=== PATIENT | female | born 1980 | race Caucasian/White ===

== ENCOUNTER → 2017-06-10 | Outpatient (CLI) | payer MEDICARE ==
[~2017-06-10] MED LIST: BIAXIN500 MG PO; CLARITIN10 MG PO; HYDROCODONE BIT1 T11 PO; ZITHROMAX Z PA250 MG PO; ZOFRAN4 MG PO
== END | disposition home or self-care (01) ==
LOC: CARD 14:55
DX: Z79.899 Other long term (current) drug therapy (principal)

== ENCOUNTER 2017-07-02 20:26 | Emergency (ER) | payer MEDICARE ==
[~2017-07-02] VITALS: Ht 170.1 cm; Wt 104.3 kg
[2017-07-02 20:31] VITALS: BP 117/81
[2017-07-02] MEDS ORDERED: PAROXETINE HCL40 MG PO (20:32)
[2017-07-02] MEDS ORDERED: DEXTROAMPH SACC20 M1 PO (20:32)
[2017-07-02] MEDS ORDERED: TOPIRAMATE50 M2 PO (20:32)
[2017-07-02] MEDS ORDERED: ATARAX,VISTARIL10 MG PO (20:32)
[2017-07-02] MEDS ORDERED: PRAZOSIN HYDROCH1 MG PO (20:32)
[2017-07-02] MEDS ORDERED: SEROQUEL XR300 MG PO (20:33)
[2017-07-02] MEDS ORDERED: MIXED AMPHETAMI30 M1 PO (20:33)
[2017-07-02] MEDS ORDERED: BUPROPION HCL150 M1 PO (20:33)
[2017-07-02] MEDS ORDERED: CEPHALEXIN500 M1 PO (21:12)
== END 2017-07-02 21:21 | disposition home or self-care (01) ==
LOC: ED 20:26
DX: L98.9 Disorder of the skin and subcutaneous tissue, unspecified (principal); F17.200 Nicotine dependence, unspecified, uncomplicated; Z79.899 Other long term (current) drug therapy; Z88.8 Allergy status to other drugs, medicaments and biological substances

== ENCOUNTER 2017-07-12 17:56 | Emergency (ER) | payer MEDICARE ==
[~2017-07-12] VITALS: Ht 170.1 cm; Wt 104.3 kg
[~2017-07-12 17:56] MED LIST changes: +ATARAX,VISTARIL10 MG PO; +BUPROPION HCL150 M1 PO; +CEPHALEXIN500 M1 PO; +DEXTROAMPH SACC20 M1 PO; +MIXED AMPHETAMI30 M1 PO; +PAROXETINE HCL40 MG PO; +PRAZOSIN HYDROCH1 MG PO; +SEROQUEL XR300 MG PO; +TOPIRAMATE50 M2 PO
[2017-07-12 18:20] VITALS: BP 146/92
[2017-07-12 19:00] LABS: HEMATOCRIT 45.2 % (37.0-47.0); HEMOGLOBIN 15.6 g/dl (12.0-16.0); MEAN CELL VOLUME 92.4 fl (81.0-99.0); MEAN CORPUSCULAR HGB 31.9 pg (27.0-31.0); MEAN CORPUSCULAR HGB CONC 34.5 g/dl (33.0-37.0); MEAN PLATELET VOLUME 10.5 fl (9.6-12.3); PLATELET COUNT AUTOMATED 234 10*3/uL (130-400); RED BLOOD COUNT 4.89 10*6/uL (4.10-5.10); RED CELL DISTRI WIDTH 13.9 % (0-14.5); WHITE BLOOD COUNT 12.8 10*3/uL (4.8-10.8)
[2017-07-12 19:15] LABS: ALBUMIN 4.1 gm/dl (3.1-4.5); ALKALINE PHOSPHATASE 103 U/L (45-117); BUN 21 mg/dl (7-24); CHLORIDE 104 mmol/L (98-107); CREATININE 0.71 mg/dL (0.55-1.02); POTASSIUM 3.9 mmol/L (3.5-5.1); SGOT/AST 17 IU/L (3-35); SGPT/ALT 46 U/L (12-78); SODIUM 139 mmol/L (136-145); TOTAL PROTEIN 7.8 gm/dL (6.4-8.2)
[2017-07-12 19:23] LABS: BASOPHILS 1 % (0-1); TOTAL CELLS COUNTED 100 #CELLS
[2017-07-12 19:24] LABS: PLATELET SUFFICIENCY NORMAL (NORMAL)
[2017-07-12 20:06] LABS: BILIRUBIN NEGATIVE (NEGATIVE); BLOOD NEGATIVE (NEGATIVE); CLARITY SL CLOUDY (CLEAR); COLOR YELLOW (YELLOW); GLUCOSE NEGATIVE (NEGATIVE); KETONE TRACE (NEGATIVE); LEUKO ESTERASE NEGATIVE (NEGATIVE); NITRITE NEGATIVE (NEGATIVE); PH 5.5 (5.0-9.0); UROBILINOGEN 0.2 E.U./dl (0.2-1.0)
[2017-07-12 20:11] LABS: BACTERIA 1+; MUCOUS 2+
[2017-07-12 20:12] LABS: RBC 0-2 rbc/hpf (0-2); WBC 0-2 wbc/hpf (0-5)
[2017-07-12] MEDS ORDERED: ZOFRAN4 MG PO (20:24)
== END 2017-07-12 20:29 | disposition home or self-care (01) ==
LOC: ED 17:56
PROVIDERS: Nurse Practitioner
DX: R11.2 Nausea with vomiting, unspecified (principal); B34.9 Viral infection, unspecified; F17.200 Nicotine dependence, unspecified, uncomplicated; Z98.890 Other specified postprocedural states; Z79.899 Other long term (current) drug therapy; Z88.8 Allergy status to other drugs, medicaments and biological substances; Z88.6 Allergy status to analgesic agent; Z98.51 Tubal ligation status

== ENCOUNTER 2017-08-25 23:54 | Emergency (ER) | payer MEDICARE ==
[~2017-08-25] VITALS: Ht 177.8 cm; Wt 90.7 kg
[2017-08-26 00:01] VITALS: BP 120/90
== END 2017-08-26 01:57 | disposition home or self-care (01) ==
LOC: ED 23:54
DX: T26.12XA Burn of cornea and conjunctival sac, left eye, initial encounter (principal); T26.11XA Burn of cornea and conjunctival sac, right eye, initial encounter; F17.200 Nicotine dependence, unspecified, uncomplicated; Z23 Encounter for immunization; Z88.8 Allergy status to other drugs, medicaments and biological substances; Z79.899 Other long term (current) drug therapy; X16.XXXA Contact with hot heating appliances, radiators and pipes, initial encounter; Y93.89 Activity, other specified; Y92.89 Other specified places as the place of occurrence of the external cause; Y99.8 Other external cause status

== ENCOUNTER → 2018-06-30 | Outpatient (CLI) | payer MEDICARE ==
[2018-06-30 13:02] LABS: BASO # 0.1 10*3/uL (0.0-0.1); BASO % 0.8 % (0.0-1.0); EOS # 0.1 10*3/uL (0.0-0.4); EOS % 1.1 % (1.0-4.0); HEMATOCRIT 44.5 % (37.0-47.0); LYMPH # 3.4 10*3/uL (1.3-4.4); LYMPH % 29.9 % (27.0-41.0); MEAN CELL VOLUME 91.4 fl (81.0-99.0); MEAN CORPUSCULAR HGB 30.8 pg (27.0-31.0); MEAN CORPUSCULAR HGB CONC 33.7 g/dl (33.0-37.0); MEAN PLATELET VOLUME 10.2 fl (9.6-12.3); MONO # 0.6 10*3/uL (0.1-1.0); MONO % 5.6 % (3.0-9.0); NEUT # 7.1 10*3/uL (2.3-7.9); NEUT % 62.3 % (47.0-73.0); PLATELET COUNT AUTOMATED 263 10*3/uL (130-400); RED BLOOD COUNT 4.87 10*6/uL (4.10-5.10); RED CELL DISTRI WIDTH 13.6 % (0-14.5); WHITE BLOOD COUNT 11.3 10*3/uL (4.8-10.8)
[2018-06-30 13:32] LABS: ALBUMIN 3.7 gm/dl (3.1-4.5); ALKALINE PHOSPHATASE 99 U/L (45-117); BUN 12 mg/dl (7-24); CHLORIDE 106 mmol/L (98-107); CHOLESTEROL 163 mg/dL (<200); CREATININE 0.76 mg/dL (0.55-1.02); HDL CHOLESTEROL 31 mg/dl (40-60); LDL CHOLESTEROL 73 mg/dL (9-159); POTASSIUM 3.8 mmol/L (3.5-5.1); SGOT/AST 29 IU/L (3-35); SGPT/ALT 69 U/L (12-78); SODIUM 138 mmol/L (136-145); TOTAL PROTEIN 7.4 gm/dL (6.4-8.2); TRIGLYCERIDES 297 mg/dl (<150); VLDL CHOLESTEROL 59 mg/dL (6-40)
[2018-06-30 13:36] LABS: THYROID STIM HORMONE (HS) 0.892 uIU/ml (0.358-4.75)
[2018-06-30 15:35] LABS: VITAMIN D, 25-HYDROXY 31.4 ng/mL (30-100)
== END | disposition home or self-care (01) ==
LOC: LAB 12:32
PROVIDERS: Physician Assistant
DX: Z51.81 Encounter for therapeutic drug level monitoring (principal); E55.9 Vitamin D deficiency, unspecified; Z79.899 Other long term (current) drug therapy

== ENCOUNTER 2018-11-26 20:13 | Emergency (ER) | payer MEDICARE ==
[~2018-11-26] VITALS: Ht 170.1 cm; Wt 118.8 kg
[2018-11-26 20:14] VITALS: BP 130/86
[2018-11-26 21:47] LABS: ALBUMIN 3.3 gm/dl (3.1-4.5); ALKALINE PHOSPHATASE 84 U/L (45-117); BUN 10 mg/dl (7-24); CHLORIDE 105 mmol/L (98-107); CREATININE 0.88 mg/dL (0.55-1.02); LIPASE 123 U/L (73-393); POTASSIUM 3.7 mmol/L (3.5-5.1); SGOT/AST 22 IU/L (3-35); SGPT/ALT 56 U/L (12-78); SODIUM 136 mmol/L (136-145)
[2018-11-26 21:53] LABS: BASO # 0.1 10*3/uL (0.0-0.1); BASO % 0.7 % (0.0-1.0); EOS # 0.1 10*3/uL (0.0-0.4); EOS % 0.4 % (1.0-4.0); HEMATOCRIT 44.2 % (37.0-47.0); HEMOGLOBIN 15.2 g/dl (12.0-16.0); LYMPH # 1.6 10*3/uL (1.3-4.4); LYMPH % 13.5 % (27.0-41.0); MEAN CELL VOLUME 90.9 fl (81.0-99.0); MEAN CORPUSCULAR HGB 31.3 pg (27.0-31.0); MEAN CORPUSCULAR HGB CONC 34.4 g/dl (33.0-37.0); MEAN PLATELET VOLUME 11.7 fl (9.6-12.3); MONO # 0.5 10*3/uL (0.1-1.0); MONO % 4.1 % (3.0-9.0); NEUT # 9.6 10*3/uL (2.3-7.9); PLATELET COUNT AUTOMATED 139 10*3/uL (130-400); RED BLOOD COUNT 4.86 10*6/uL (4.10-5.10); RED CELL DISTRI WIDTH 13.7 % (0-14.5); WHITE BLOOD COUNT 11.8 10*3/uL (4.8-10.8)
[2019-02-24] MEDS ORDERED: PREDNISONE50 MG PO (18:24)
[2019-02-24] MEDS ORDERED: PROAIR HFA8.5 GM INH (18:24)
[2019-02-24] MEDS ORDERED: ZITHROMAX250 MG PO (18:24)
[2019-03-09] MEDS ORDERED: VRAYLAR3 MG PO (09:02)
[2019-03-09] MEDS ORDERED: DOXEPIN HCL75 MG PO (09:02)
[2019-03-09] MEDS ORDERED: CHANTIX1 M1 PO (09:03)
[2019-03-09] MEDS ORDERED: AMPHETAMINE SAL15 M1 PO (09:03)
== END 2018-11-27 00:26 | disposition home or self-care (01) ==
LOC: ED 20:13
PROVIDERS: Physician Assistant
DX: R10.31 Right lower quadrant pain (principal); R10.32 Left lower quadrant pain; M54.5 Low back pain; R11.0 Nausea; R39.12 Poor urinary stream; Z79.899 Other long term (current) drug therapy; Z88.8 Allergy status to other drugs, medicaments and biological substances

== ENCOUNTER → 2019-03-09 | Outpatient (CLI) | payer MEDICARE ==
[~2019-03-09] MED LIST changes: +AMPHETAMINE SAL15 M1 PO; +CHANTIX1 M1 PO; +DOXEPIN HCL75 MG PO; +PREDNISONE50 MG PO; +PROAIR HFA8.5 GM INH; +VRAYLAR3 MG PO; +ZITHROMAX250 MG PO
--- NOTE | ~2019-03-09 | ST ---
[place], [place] EXERCISE STRESS TEST REPORT NAME: [id number] UNIT #: [id number] ROOM: DOCTOR: KIMI HYLTON BIRTHDATE: [birth year] DOS: 03/09/2019 INDICATION: Chest pain. PROTOCOL: Exercise treadmill stress test, Armand protocol. Baseline EKG showed normal sinus rhythm with a rate of 82 beats per minute. There are no resting ST or T-wave abnormalities. Baseline blood pressure 118/70. The patient exercised for a total of 7 minutes achieving a peak heart rate of 156, which is 85% of the predicted maximum. Peak blood pressure was 144/90. The patient reported shortness of breath, but no chest pain was noted. Stress EKG showed no evidence of ischemia and no arrhythmias were noted. There was rare PVC. IMPRESSION: 1. No evidence of stress-induced ischemia by EKG. 2. Normal blood pressure response to exercise. 3. Normal heart rate recovery. 4. Average functional capacity, with a total workload achieved of 10 METs. 5. [place] treadmill score of 7, which is low risk. RECOMMENDATIONS: Ongoing efforts for weight loss, increased physical activity, and smoking cessation. Dr. KIMI HYLTON MD CM:STRESS:EXERCISE STRESS TEST REPORT [id number] KIMI HYLTON
--- NOTE | 2019-03-09 10:00 | NUR ---
INFORMRED SIGNED CONSENT OBTAINED FOR STANDARD ONLY GXT WITH DR HYLTON. RESTING EKG NSR HR 82 BP 124/78 IN SUPINE POSITION. STANDING HR 92 BP 118/70. PT COMPLETED 6:57 OF A SHAHLA PROTOCOL WITH PT COMPLETING 57 SECONDS OF STAGE III AT 3.4 MPH AN A 14% GRADE. PULSE OX REMAINED STABLE 96% PT RECEACHED A PEAK HR OF 156 WHICH REPRESENTS 85% OF PREDICTED MAXIMUM AND A PEAK BP OF 144/90. TEST TERMINATED DUE TO FATIGUE AND SOB. LAST RECOVERY HR OF 101 BP 128/72. PT IN STABLE CONIDITION, HOME TO SELF.
== END | disposition home or self-care (01) ==
LOC: CARD 00:41
DX: R07.89 Other chest pain (principal); E66.9 Obesity, unspecified

== ENCOUNTER → 2019-04-04 | Outpatient (CLI) | payer MEDICARE | END | disposition home or self-care (01) | LOC: RAD 09:05 | DX: J40 Bronchitis, not specified as acute or chronic (principal); R07.9 Chest pain, unspecified; J18.9 Pneumonia, unspecified organism; R06.2 Wheezing; R53.83 Other fatigue ==

== ENCOUNTER → 2019-06-13 | Outpatient (CLI) | payer MEDICARE ==
--- NOTE | ~2019-06-13 | PF ---
[place], [place] PULMONARY FUNCTION TEST [id number] UNIT #: [id number] ROOM: DOCTOR: SONA SNOWDEN MD BIRTHDATE: [birth year] DOS: 06/13/2019 TEST ORDERED BY: Ajith Sanchez. HISTORY: The patient recorded 39 years old female, height of 67 inches, weight of 289 pounds. BMI 45.3. Testing done for assessment of symptoms of wheezing with history of chronic obstructive pulmonary disease. The patient was noted tobacco use 1 pack of cigarettes per day for 25 years. SPIROMETRY: The FVC 3.73 liters as 90% predicted value, FEV1 of 2.96 liters, 87% predicted value with a ratio of FEV1/FVC recorded as 79%. Post-bronchodilator, no changes were noted. Flow volume loop was noted as normal. LUNG VOLUME: Thoracic gas volume recorded 86%, residual volume of 50%, total lung capacity of 76%, mildly decreased. The patient's airway resistance and passive conductance noted normal. The patient's lung diffusion recorded 80% as normal. FINAL IMPRESSION: Current test is suggestive possibly of mild restrictive lung disease, most likely related to the morbid obesity. Clinical correlation advised. Remaining test was normal. SONA GARCÍA MD CM:PFREPORT:PULMONARY FUNCTION TEST [id number] SONA HURLEY MD
== END | disposition home or self-care (01) ==
LOC: CP 10:15
DX: J44.9 Chronic obstructive pulmonary disease, unspecified (principal); R06.2 Wheezing

== ENCOUNTER → 2019-06-26 | Outpatient (CLI) | payer MEDICARE | END | disposition home or self-care (01) | LOC: US 06-25 07:44 | DX: R94.5 Abnormal results of liver function studies (principal) ==

== ENCOUNTER → 2019-07-04 | Outpatient (CLI) | payer MEDICARE ==
[2019-07-04 09:53] LABS: BASO # 0.1 10*3/uL (0.0-0.1); BASO % 0.9 % (0.0-1.0); EOS # 0.2 10*3/uL (0.0-0.4); EOS % 2.5 % (1.0-4.0); HEMATOCRIT 48.5 % (37.0-47.0); HEMOGLOBIN 16.4 g/dl (12.0-16.0); LYMPH # 3.1 10*3/uL (1.3-4.4); LYMPH % 32.3 % (27.0-41.0); MEAN CELL VOLUME 92.6 fl (81.0-99.0); MEAN CORPUSCULAR HGB 31.3 pg (27.0-31.0); MEAN CORPUSCULAR HGB CONC 33.8 g/dl (33.0-37.0); MEAN PLATELET VOLUME 10.6 fl (9.6-12.3); MONO # 0.7 10*3/uL (0.1-1.0); MONO % 6.7 % (3.0-9.0); NEUT # 5.5 10*3/uL (2.3-7.9); NEUT % 57.4 % (47.0-73.0); PLATELET COUNT AUTOMATED 271 10*3/uL (130-400); RED BLOOD COUNT 5.24 10*6/uL (4.10-5.10); RED CELL DISTRI WIDTH 13.3 % (0-14.5); WHITE BLOOD COUNT 9.6 10*3/uL (4.8-10.8)
[2019-07-04 09:59] LABS: CHOLESTEROL 212 mg/dL (<200); TRIGLYCERIDES 374 mg/dl (<150); VLDL CHOLESTEROL 75 mg/dL (6-40)
[2019-07-04 10:03] LABS: HDL CHOLESTEROL 27 mg/dl (40-60); LDL CHOLESTEROL 110 mg/dL (9-159)
[2019-07-05 08:08] LABS: HEPATITIS B SURFACE AG Negative (Negative); HEPATITIS C VIRUS ANTIBODY <0.1 s/co (0.0-0.9)
[2019-07-05 12:11] LABS: ANTI-DSDNA ANTIBODIES 096339 2 IU/mL (0-9); ANTI-RNP ANTIBODIES <0.2 AI (0.0-0.9); ANTICHROMATIN ANTIBODIES <0.2 AI (0.0-0.9); ANTISCLERODERMA-70 AB <0.2 AI (0.0-0.9); SJOGREN ANTI-SS-A <0.2 AI (0.0-0.9); SJOREN AB, ANTI-SS-B <0.2 AI (0.0-0.9)
[2019-07-05 13:06] LABS: ANTI-SMOOTH MUSCLE ANTIBODY 6 Units (0-19)
== END | disposition home or self-care (01) ==
LOC: LAB 09:07
PROVIDERS: Nurse Practitioner Family
DX: E78.1 Pure hyperglyceridemia (principal); K76.0 Fatty (change of) liver, not elsewhere classified; J44.9 Chronic obstructive pulmonary disease, unspecified; D72.829 Elevated white blood cell count, unspecified; R94.5 Abnormal results of liver function studies

== ENCOUNTER → 2019-07-05 | Outpatient (CLI) | payer MEDICARE | END | disposition home or self-care (01) | LOC: RAD 00:53 | DX: K76.0 Fatty (change of) liver, not elsewhere classified (principal); R94.5 Abnormal results of liver function studies ==

== ENCOUNTER → 2020-04-07 | Outpatient (CLI) | payer MEDICARE ==
[2020-04-07 11:05] LABS: ALBUMIN 3.7 gm/dl (3.1-4.5); BILIRUBIN, DIRECT 0.1 mg/dL (0.0-0.2); TOTAL PROTEIN 7.5 gm/dL (6.4-8.2)
[2020-04-08 10:09] LABS: HEPATITIS A AB, TOTAL Negative (Negative); HEPATITIS B SURFACE AB Non Reactive (.)
== END | disposition home or self-care (01) ==
LOC: LAB 09:58
PROVIDERS: ATTEND Physician Assistant
DX: K76.0 Fatty (change of) liver, not elsewhere classified (principal)

== ENCOUNTER → 2020-06-12 | Outpatient (CLI) | payer MEDICARE | END | disposition home or self-care (01) | LOC: CARD 13:26 | DX: Z51.81 Encounter for therapeutic drug level monitoring (principal); Z79.899 Other long term (current) drug therapy ==

== ENCOUNTER 2021-01-17 14:25 | Emergency (ER) | payer MEDICARE ==
[~2021-01-17] VITALS: Ht 170.1 cm; Wt 117.9 kg
[2021-01-17 14:29] VITALS: BP 128/81
[2021-01-17] MEDS ORDERED: AUGMENTIN 875-875 MG PO (14:58)
[2021-01-17] MEDS ORDERED: OFLOXACIN OTIC5 ML OPH (14:58)
== END 2021-01-17 14:56 | disposition home or self-care (01) ==
LOC: ED 14:25
DX: H66.93 Otitis media, unspecified, bilateral (principal); J32.9 Chronic sinusitis, unspecified; R05 Cough; F31.9 Bipolar disorder, unspecified; F17.200 Nicotine dependence, unspecified, uncomplicated; Z88.8 Allergy status to other drugs, medicaments and biological substances; Z79.899 Other long term (current) drug therapy; Z98.890 Other specified postprocedural states

== ENCOUNTER → 2021-02-23 | Outpatient (CLI) | payer MEDICARE ==
[~2021-02-23] MED LIST changes: +AUGMENTIN 875-875 MG PO; +OFLOXACIN OTIC5 ML OPH
[2021-02-23 08:13] LABS: HEMATOCRIT 44.8 % (37.0-47.0); MEAN CORPUSCULAR HGB CONC 33.7 g/dl (33.0-37.0); MEAN PLATELET VOLUME 10.6 fl (9.6-12.3); PLATELET COUNT AUTOMATED 250 10*3/uL (130-400); RED BLOOD COUNT 4.87 10*6/uL (4.10-5.10); RED CELL DISTRI WIDTH 13.6 % (0-14.5); WHITE BLOOD COUNT 9.2 10*3/uL (4.8-10.8)
[2021-02-23 08:49] LABS: CHLORIDE 107 mmol/L (98-107); POTASSIUM 3.7 mmol/L (3.5-5.1); SODIUM 138 mmol/L (136-145)
[2021-02-23 09:24] LABS: ALBUMIN 3.2 gm/dl (3.1-4.5); ALKALINE PHOSPHATASE 97 U/L (45-117); BUN 7 mg/dl (7-24); CHOLESTEROL 233 mg/dL (<200); CREATININE 0.78 mg/dL (0.55-1.02); SGOT/AST 30 IU/L (3-35); SGPT/ALT 61 U/L (12-78); TOTAL PROTEIN 6.7 gm/dL (6.4-8.2); TRIGLYCERIDES 718 mg/dl (<150)
[2021-02-23 09:28] LABS: ATYPICAL LYMPHS 3 % (0-0); TOTAL CELLS COUNTED 100 #CELLS
[2021-02-23 09:31] LABS: PLATELET SUFFICIENCY NORMAL (NORMAL)
[2021-02-24 04:06] LABS: PROLACTIN 13.8 ng/mL (4.8-23.3)
[2021-02-28 00:06] LABS: TESTOSTERONE FREE, (DIRECT) 4.4 pg/mL (0.0-4.2)
== END | disposition home or self-care (01) ==
LOC: LAB 07:51
PROVIDERS: Nurse Practitioner; ATTEND Nurse Practitioner Women's Health
DX: N92.1 Excessive and frequent menstruation with irregular cycle (principal); E66.9 Obesity, unspecified; L65.9 Nonscarring hair loss, unspecified

== ENCOUNTER → 2021-03-03 | Outpatient (CLI) | payer MEDICARE | END | disposition home or self-care (01) | LOC: US 02-23 09:00 | PROVIDERS: ATTEND Nurse Practitioner Women's Health | DX: N92.1 Excessive and frequent menstruation with irregular cycle (principal) ==

== ENCOUNTER → 2021-03-27 | Outpatient (CLI) | payer MEDICARE ==
[2021-03-27 13:32] LABS: PTH INTACT 59.5 pg/mL (18.5-88.0); VITAMIN D, 25-HYDROXY 30.1 ng/mL (30-100)
== END | disposition home or self-care (01) ==
LOC: LAB 12:16
PROVIDERS: ATTEND Nurse Practitioner Family
DX: R53.83 Other fatigue (principal); E55.9 Vitamin D deficiency, unspecified

== ENCOUNTER → 2021-07-07 | Outpatient (CLI) | payer MEDICARE ==
[2021-07-07 12:19] LABS: BASO # 0.1 10*3/uL (0.0-0.1); BASO % 0.8 % (0.0-1.0); EOS # 0.2 10*3/uL (0.0-0.4); EOS % 2.1 % (1.0-4.0); HEMATOCRIT 47.2 % (37.0-47.0); LYMPH # 3.7 10*3/uL (1.3-4.4); LYMPH % 33.5 % (27.0-41.0); MEAN CELL VOLUME 91.1 fl (81.0-99.0); MEAN CORPUSCULAR HGB 30.9 pg (27.0-31.0); MEAN CORPUSCULAR HGB CONC 33.9 g/dl (33.0-37.0); MEAN PLATELET VOLUME 10.5 fl (9.6-12.3); MONO # 0.7 10*3/uL (0.1-1.0); MONO % 6.2 % (3.0-9.0); NEUT # 6.3 10*3/uL (2.3-7.9); PLATELET COUNT AUTOMATED 278 10*3/uL (130-400); RED BLOOD COUNT 5.18 10*6/uL (4.10-5.10); RED CELL DISTRI WIDTH 13.4 % (0-14.5)
[2021-07-07 12:34] LABS: ALBUMIN 3.2 gm/dl (3.1-4.5); ALKALINE PHOSPHATASE 86 U/L (45-117); BUN 10 mg/dl (7-24); CHLORIDE 109 mmol/L (98-107); CHOLESTEROL 191 mg/dL (<200); CREATININE 0.72 mg/dL (0.55-1.02); POTASSIUM 4.3 mmol/L (3.5-5.1); SGOT/AST 14 IU/L (3-35); SGPT/ALT 47 U/L (12-78); SODIUM 138 mmol/L (136-145); TOTAL PROTEIN 7.2 gm/dL (6.4-8.2); TRIGLYCERIDES 421 mg/dl (<150)
[2021-07-07 13:31] LABS: VITAMIN D, 25-HYDROXY 19.4 ng/mL (30-100)
== END | disposition home or self-care (01) ==
LOC: LAB 11:51
PROVIDERS: ATTEND Nurse Practitioner Family
DX: Z79.899 Other long term (current) drug therapy (principal)

== ENCOUNTER → 2021-10-27 | Outpatient (CLI) | payer MEDICARE ==
[2021-10-27 08:56] LABS: HEMATOCRIT 44.6 % (37.0-47.0); MEAN CELL VOLUME 88.5 fl (81.0-99.0); MEAN CORPUSCULAR HGB 30.6 pg (27.0-31.0); MEAN CORPUSCULAR HGB CONC 34.5 g/dl (33.0-37.0); MEAN PLATELET VOLUME 10.7 fl (9.6-12.3); RED BLOOD COUNT 5.04 10*6/uL (4.10-5.10); RED CELL DISTRI WIDTH 13.4 % (0-14.5); WHITE BLOOD COUNT 9.9 10*3/uL (4.8-10.8)
[2021-10-27 09:42] LABS: BUN 10 mg/dl (7-24); CHLORIDE 110 mmol/L (98-107); CHOLESTEROL 167 mg/dL (<200); POTASSIUM 3.9 mmol/L (3.5-5.1); SGOT/AST 13 IU/L (3-35); SGPT/ALT 39 U/L (12-78); SODIUM 138 mmol/L (136-145); TRIGLYCERIDES 215 mg/dl (<150)
[2021-10-27 09:44] LABS: ALKALINE PHOSPHATASE 78 U/L (45-117); LDL CHOLESTEROL 94 mg/dL (9-159); TOTAL PROTEIN 7.1 gm/dL (6.4-8.2)
[2021-10-27 11:13] LABS: VITAMIN D, 25-HYDROXY 21.9 ng/mL (30-100)
== END | disposition home or self-care (01) ==
LOC: LAB 08:31
PROVIDERS: ATTEND Family Medicine
DX: E78.00 Pure hypercholesterolemia, unspecified (principal); E55.9 Vitamin D deficiency, unspecified; K76.0 Fatty (change of) liver, not elsewhere classified

== ENCOUNTER → 2022-06-21 | Outpatient (CLI) | payer OTHER ==
[2022-06-21 10:37] LABS: HEMATOCRIT 47.6 % (37.0-47.0); MEAN CELL VOLUME 91.7 fl (81.0-99.0); MEAN CORPUSCULAR HGB 31.4 pg (27.0-31.0); MEAN CORPUSCULAR HGB CONC 34.2 g/dl (33.0-37.0); MEAN PLATELET VOLUME 10.4 fl (9.6-12.3); RED BLOOD COUNT 5.19 10*6/uL (4.10-5.10); RED CELL DISTRI WIDTH 13.6 % (0-14.5); WHITE BLOOD COUNT 9.3 10*3/uL (4.8-10.8)
[2022-06-21 10:55] LABS: BUN 7 mg/dl (7-24); CHLORIDE 111 mmol/L (98-107); CHOLESTEROL 181 mg/dL (<200); CREATININE 0.57 mg/dL (0.55-1.02); POTASSIUM 4.1 mmol/L (3.5-5.1); SGPT/ALT 28 U/L (12-78); SODIUM 136 mmol/L (136-145); TOTAL PROTEIN 7.3 gm/dL (6.4-8.2); TRIGLYCERIDES 200 mg/dl (<150)
[2022-06-21 11:00] LABS: ALKALINE PHOSPHATASE 84 U/L (45-117); FREE T4 0.85 ng/dl (0.76-1.46); LDL CHOLESTEROL 112 mg/dL (9-159)
[2022-06-21 11:41] LABS: VITAMIN D, 25-HYDROXY 27.4 ng/mL (30-100)
[2022-06-22 05:04] LABS: HBSAG Negative (Negative); HEP B CORE AB, IGM Negative (Negative); HEPATITIS C ANTIBODY 0.1 (0.0-0.9)
[2022-06-24 13:04] LABS: TESTOSTERONE FREE, (DIRECT) 2.5 pg/mL (0.0-4.2)
== END | disposition home or self-care (01) ==
LOC: LAB 09:50
PROVIDERS: ATTEND Family Medicine
DX: E55.9 Vitamin D deficiency, unspecified (principal); R53.83 Other fatigue; R63.5 Abnormal weight gain; E74.00 Glycogen storage disease, unspecified; G47.10 Hypersomnia, unspecified; E74.9 Disorder of carbohydrate metabolism, unspecified; L68.0 Hirsutism; Z79.899 Other long term (current) drug therapy

== ENCOUNTER → 2023-03-31 | Outpatient (CLI) | payer OTHER ==
[2023-03-31 09:05] LABS: HEMATOCRIT 44.7 % (37.0-47.0); MEAN CELL VOLUME 90.9 fl (81.0-99.0); MEAN CORPUSCULAR HGB 31.9 pg (27.0-31.0); MEAN CORPUSCULAR HGB CONC 35.1 g/dl (33.0-37.0); MEAN PLATELET VOLUME 10.7 fl (9.6-12.3); RED BLOOD COUNT 4.92 10*6/uL (4.10-5.10); RED CELL DISTRI WIDTH 13.5 % (0-14.5); WHITE BLOOD COUNT 8.2 10*3/uL (4.8-10.8)
[2023-03-31 10:09] LABS: ALKALINE PHOSPHATASE 83 U/L (46-116); BUN 7 mg/dl (9-23); CHLORIDE 105 mmol/L (98-107); CHOLESTEROL 155 mg/dL (<200); LDL CHOLESTEROL 73 mg/dL (9-159); POTASSIUM 3.9 mmol/L (3.4-5.1); SGPT/ALT 44 U/L (10-49); TOTAL PROTEIN 6.7 gm/dL (6.0-8.0); TRIGLYCERIDES 237 mg/dl (<150)
[2023-03-31 10:31] LABS: VITAMIN D, 25-HYDROXY 32.5 ng/mL (30-100)
== END | disposition home or self-care (01) ==
LOC: LAB 08:49
PROVIDERS: ATTEND Family Medicine
DX: E55.9 Vitamin D deficiency, unspecified (principal); E74.9 Disorder of carbohydrate metabolism, unspecified; R53.83 Other fatigue; Z79.899 Other long term (current) drug therapy

== ENCOUNTER → 2023-06-07 | Outpatient (CLI) | payer OTHER ==
[2023-06-07 09:14] LABS: BASO # 0.1 10*3/uL (0.0-0.1); BASO % 1.2 % (0.0-1.0); EOS # 0.2 10*3/uL (0.0-0.4); EOS % 2.9 % (1.0-4.0); HEMATOCRIT 45.4 % (37.0-47.0); LYMPH # 2.8 10*3/uL (1.3-4.4); LYMPH % 40.3 % (27.0-41.0); MEAN CELL VOLUME 90.6 fl (81.0-99.0); MEAN CORPUSCULAR HGB 30.9 pg (27.0-31.0); MEAN CORPUSCULAR HGB CONC 34.1 g/dl (33.0-37.0); MEAN PLATELET VOLUME 10.8 fl (9.6-12.3); MONO # 0.5 10*3/uL (0.1-1.0); MONO % 6.5 % (3.0-9.0); NEUT # 3.4 10*3/uL (2.3-7.9); PLATELET COUNT AUTOMATED 244 10*3/uL (130-400); RED BLOOD COUNT 5.01 10*6/uL (4.10-5.10); RED CELL DISTRI WIDTH 13.3 % (0-14.5)
[2023-06-07 09:37] LABS: ALKALINE PHOSPHATASE 81 U/L (46-116); BUN 7 mg/dl (9-23); CHLORIDE 112 mmol/L (98-107); CHOLESTEROL 148 mg/dL (<200); LDL CHOLESTEROL 83 mg/dL (9-159); POTASSIUM 4.2 mmol/L (3.4-5.1); SGPT/ALT 74 U/L (5-49); TOTAL PROTEIN 6.3 gm/dL (6.0-8.0); TRIGLYCERIDES 162 mg/dl (<150)
== END | disposition home or self-care (01) ==
LOC: LAB 08:41
PROVIDERS: ATTEND Nurse Practitioner Family
DX: J32.9 Chronic sinusitis, unspecified (principal); E66.9 Obesity, unspecified; E88.819 Insulin resistance, unspecified; Z72.0 Tobacco use; Z79.899 Other long term (current) drug therapy

== ENCOUNTER 2024-03-15 22:31 | Emergency (ER) | payer MEDICARE, OTHER ==
[~2024-03-15] VITALS: Ht 170.1 cm; Wt 117.9 kg
[2024-03-15] MEDS ORDERED: Ciprofloxacin Hydrochloride 0.3% OPHTHLAMIC BOTTLE OPH ONE (22:55)
[2024-03-15] MEDS ORDERED: FLUORESCEIN SODIUM 1 MG STRIP OPH ONE (22:55)
[2024-03-15] MEDS ORDERED: Tetracaine Hydrochloride 0.5% 4 ML BOT OPH ONE (22:55)
== END 2024-03-15 23:05 | disposition home or self-care (01) ==
LOC: ED 22:31
DX: H57.89 Other specified disorders of eye and adnexa (principal); F31.9 Bipolar disorder, unspecified; I25.10 Atherosclerotic heart disease of native coronary artery without angina pectoris; F17.200 Nicotine dependence, unspecified, uncomplicated; Z88.8 Allergy status to other drugs, medicaments and biological substances; Z98.890 Other specified postprocedural states

== ENCOUNTER → 2024-10-16 | Outpatient (CLI) | payer OTHER ==
[2024-10-16 07:46] LABS: BASO # 0.1 10*3/uL (0.0-0.1); BASO % 1.1 % (0.0-1.0); EOS # 0.3 10*3/uL (0.0-0.4); EOS % 2.6 % (1.0-4.0); MEAN CELL VOLUME 88.5 fl (81.0-99.0); MEAN CORPUSCULAR HGB 30.6 pg (27.0-31.0); MEAN CORPUSCULAR HGB CONC 34.5 g/dl (33.0-37.0); MEAN PLATELET VOLUME 10.5 fl (9.6-12.3); MONO # 0.9 10*3/uL (0.1-1.0); MONO % 7.8 % (3.0-9.0); NEUT # 4.9 10*3/uL (2.3-7.9); NEUT % 44.4 % (47.0-73.0); PLATELET COUNT AUTOMATED 244 10*3/uL (130-400); RED BLOOD COUNT 4.97 10*6/uL (4.10-5.10); RED CELL DISTRI WIDTH 13.2 % (0-14.5); WHITE BLOOD COUNT 10.9 10*3/uL (4.8-10.8)
[2024-10-16 08:27] LABS: ALKALINE PHOSPHATASE 71 U/L (46-116); BUN 12 mg/dl (9-23); CHLORIDE 105 mmol/L (98-107); POTASSIUM 3.9 mmol/L (3.4-5.1); SGPT/ALT 62 U/L (5-49); TOTAL PROTEIN 7.2 gm/dL (6.0-8.0)
== END | disposition home or self-care (01) ==
LOC: LAB 07:21
PROVIDERS: ATTEND Nurse Practitioner Family
DX: Z51.81 Encounter for therapeutic drug level monitoring (principal); F31.81 Bipolar II disorder

== ENCOUNTER 2025-01-16 20:42 | Emergency (ER) | payer MEDICARE, OTHER ==
[~2025-01-16] VITALS: Ht 170.1 cm; Wt 117.9 kg
[2025-01-16 21:00] VITALS: BP 142/94
[2025-01-16] MEDS ORDERED: 'CLONIDINE0.1 MG PO (21:17)
[2025-01-16] MEDS ORDERED: GABAPENTIN400 MG PO (21:18)
[2025-01-16] MEDS ORDERED: CAPLYTA42 MG PO (21:18)
[2025-01-16] MEDS ORDERED: TRILEPTAL150 MG PO (21:19)
[2025-01-16] MEDS ORDERED: MIRTAZAPINE30 M2 PO (21:19)
[2025-01-16] MEDS ORDERED: BUSPAR15 MG PO (21:19)
[2025-01-16] MEDS ORDERED: HYDROXYZINE HCL25 MG PO (21:19)
[2025-01-16] MEDS ORDERED: MELOXICAM15 MG PO (21:20)
[2025-01-16] MEDS ORDERED: methylPREDNISolone sod succ 125 MG VIAL IV ONE (21:50)
[2025-01-16] MEDS ORDERED: Albuterol Sulf/Ipratropium 3 ML VIAL NEB ONE (21:50)
[2025-01-16 21:59] LABS: BASO # 0.1 10*3/uL (0.0-0.1); BASO % 0.8 % (0.0-1.0); EOS # 0.1 10*3/uL (0.0-0.4); EOS % 1.2 % (1.0-4.0); HEMATOCRIT 41.2 % (37.0-47.0); MEAN CELL VOLUME 88.8 fl (81.0-99.0); MEAN CORPUSCULAR HGB 30.2 pg (27.0-31.0); MEAN PLATELET VOLUME 10.5 fl (9.6-12.3); MONO # 0.8 10*3/uL (0.1-1.0); NEUT # 6.8 10*3/uL (2.3-7.9); NEUT % 64.4 % (47.0-73.0); PLATELET COUNT AUTOMATED 216 10*3/uL (130-400); RED BLOOD COUNT 4.64 10*6/uL (4.10-5.10); RED CELL DISTRI WIDTH 13.1 % (0-14.5); WHITE BLOOD COUNT 10.5 10*3/uL (4.8-10.8)
[2025-01-16 22:18] LABS: BUN 14 mg/dl (9-23); CHLORIDE 102 mmol/L (98-107); POTASSIUM 3.6 mmol/L (3.4-5.1)
[2025-01-16] MEDS ORDERED: AVPAK AZITHROM250 M1 PO (23:40)
[2025-01-16] MEDS ORDERED: PREDNISONE20 M1 PO (23:41)
[2025-01-16] MEDS ORDERED: AZITHROMYCIN 250 MG TAB PO ONE (23:45)
== END 2025-01-17 00:06 | disposition home or self-care (01) ==
LOC: ED 20:42
PROVIDERS: Nurse Practitioner Family
DX: J44.89 Other specified chronic obstructive pulmonary disease (principal); R07.89 Other chest pain; Z87.891 Personal history of nicotine dependence; Z88.8 Allergy status to other drugs, medicaments and biological substances; Z79.899 Other long term (current) drug therapy; Z98.890 Other specified postprocedural states

== ENCOUNTER 2025-06-07 12:07 | Emergency (ER) | payer MEDICARE, OTHER ==
[~2025-06-07] VITALS: Ht 170.1 cm; Wt 113.4 kg
[~2025-06-07 12:07] MED LIST changes: +'CLONIDINE0.1 MG PO; +AVPAK AZITHROM250 M1 PO; +BUSPAR15 MG PO; +CAPLYTA42 MG PO; +GABAPENTIN400 MG PO; +HYDROXYZINE HCL25 MG PO; +MELOXICAM15 MG PO; +MIRTAZAPINE30 M2 PO; +PREDNISONE20 M1 PO; +TRILEPTAL150 MG PO
[2025-06-07 12:22] VITALS: BP 160/97
== END 2025-06-07 13:06 | disposition left against medical advice (07) ==
LOC: ED 12:07
DX: I10 Essential (primary) hypertension (principal); R53.81 Other malaise; F31.9 Bipolar disorder, unspecified; F17.210 Nicotine dependence, cigarettes, uncomplicated; Z88.8 Allergy status to other drugs, medicaments and biological substances